=== PATIENT | female | born 1990 | race Two or more races ===

== ENCOUNTER 2023-02-28 19:47 | Emergency (ER) | payer OTHER ==
[~2023-02-28] VITALS: Ht 170.2 cm; Wt 55.0 kg
[2023-02-28 20:17] VITALS: BP 116/87
[2023-03-01 01:36] VITALS: PULSE 72; RESP 18; TEMP 97.7; O2SAT 96
[2023-03-01] MEDS ORDERED: IBUPROFEN 600 MG TAB PO ONE (01:45)
[2023-03-01] MEDS ORDERED: HYDROcodone-ACET 10/325MG TAB PO ONE (03:15)
== END 2023-03-01 03:55 | disposition left against medical advice (07) ==
LOC: ER 19:47
DX: T81.9XXA Unspecified complication of procedure, initial encounter (principal)
CPT/HCPCS: 73610

== ENCOUNTER 2023-11-14 08:43 | Emergency (ER) | payer MEDICAID, OTHER ==
[~2023-11-14] VITALS: Ht 167.6 cm; Wt 55.6 kg
[2023-11-14] MEDS: MORPHINE SULFATE INJ 2 MG/ml SYRG IM ONE (10:46)
[2023-11-14 10:47] VITALS: BP 112/64; TEMP 97.6
[2023-11-14 11:19] LABS: Urine Bacteria None Seen /hpf (None Seen)
[2023-11-14 11:33] LABS: Urine Blood Negative /uL (Negative); Urine Clarity CLOUDY (Clear); Urine Color Yellow (Yellow); Urine Mucus MANY (None Seen); Urine Protein, UAD 1+ (Negative); Urine Specific Gravity 1.031 (1.001-1.035); Urine Urobilinogen 2 mg/dL (Negative); Urine WBC 2 /hpf (0 - 5); Urine pH 5.5 (5.0-9.0)
[2023-11-14 11:35] LABS: Basophils # (auto) 0.1 10 ^3/uL (0-0.2); Basophils % (auto) 1.1 % (0.0-2.0); Eosinophils # (auto) 0.1 10 ^3/uL (0-0.8); Hematocrit 43.8 % (36.0-46.0); Hemoglobin 15.3 g/dL (12.2-16.2); Lymphocytes # (auto) 2.7 10 ^3/uL (0.4-5.4); Lymphocytes % (auto) 26.9 % (10.0-50.0); Mean Corpuscular Hemoglobin 32.1 pg (28.0-32.0); Mean Corpuscular Hgb Conc. 34.9 g/dL (32.0-36.0); Mean Corpuscular Volume 92.1 fL (80.0-100.0); Monocytes # (auto) 1.3 10 ^3/uL (0-1.3); Monocytes % (auto) 12.9 % (0.0-12.0); Neutrophils # (auto) 5.9 10 ^3/uL (1.6-8.6); Neutrophils % (auto) 58.1 % (37.0-80.0); Red Blood Cells 4.75 10^6/uL (4.0-5.20); Red Cell Distribution Width 13.7 % (11.8-14.3); White Blood Cell 10.1 10^3/uL (4.4-10.8)
[2023-11-14 11:38] LABS: Amphetamine Screen, Urine Pos (NEGATIVE); Barbiturate Scree,Urine Neg (NEGATIVE); Benzodiazephine Screen, Urine Neg (NEGATIVE); Cannabinoid Screen, Urine Pos (NEGATIVE); Cocaine Screen, Urine Neg (NEGATIVE); Opiate Scree,Urine Neg (NEGATIVE); Phencyclidine Screen, Urine Neg (NEGATIVE)
[2023-11-14 11:39] LABS: Anion Gap 10 (5-15); Carbon Dioxide 24 mmol/L (20-30); Chloride 102 mmol/L (98-107); Sodium 136 mmol/L (136-145)
[2023-11-14 11:40] LABS: Calcium 9.7 mg/dL (8.7-10.4)
[2023-11-14 11:45] LABS: BUN/Creatinine Ratio 10.3 (10.0-20.0); Blood Alcohol < 3.0 mg/dL (<10); Blood Urea Nitrogen 7 mg/dL (9-23); Glucose 101 mg/dL (74-106)
[2023-11-14 11:47] LABS: Acetaminophen < 2.0 UG/ML (10.0-20.0)
[2023-11-14 11:48] LABS: Salicylate < 3.0 mg/dL (2.8-20.0)
[2023-11-14 13:00] VITALS: PULSE 73; RESP 20; O2SAT 100
[2023-11-14] MEDS: KETOROLAC TROMETH 30 MG/ML 1ML VIAL IM ONE (16:35)
[2023-11-14] MEDS ORDERED: OLANZapine 5 MG TAB PO SCH (22:00)
[2023-11-14] MEDS ORDERED: GABAPENTIN 100 MG CAP PO SCH (22:00)
== END 2023-11-14 10:51 | disposition home or self-care (01) ==
LOC: ER 08:43
DX: G89.11 Acute pain due to trauma (principal); R10.2 Pelvic and perineal pain; R45.851 Suicidal ideations; F19.10 Other psychoactive substance abuse, uncomplicated; Z87.81 Personal history of (healed) traumatic fracture; Z79.899 Other long term (current) drug therapy
CPT/HCPCS: 36415; 80048; 80307; 80320; 80329; 81001; 81025; 85025; 96372; 99284; J1885; J2270